=== PATIENT | female | born 1940 | race Two or more races ===

== ENCOUNTER → 2019-06-27 | Emergency (ER) | payer OTHER ==
[~2019-06-27] VITALS: Ht 162.6 cm; Wt 63.5 kg
== END | disposition home or self-care (01) ==
LOC: ER 19:51
DX: S52.511A Displaced fracture of right radial styloid process, initial encounter for closed fracture (principal); W18.39XA Other fall on same level, initial encounter; Y93.89 Activity, other specified; Y92.488 Other paved roadways as the place of occurrence of the external cause; Y99.8 Other external cause status